=== PATIENT | male | born 1975 | race Two or more races ===

== ENCOUNTER 2024-03-13 14:11 | Emergency (ER) | payer OTHER, MEDICAID, SELFPAY ==
[2024-03-13 14:24] VITALS: BP 115/74; PULSE 87; RESP 19; TEMP 36.9; O2SAT 98
--- NOTE | 2024-03-13 14:27 | PD.EDRME ---
Rapid Medical Screening Exam RME Arrival date/time: 03/13/24 14:11 Chief Complaint: Abdominal Pain Time Seen by Provider: 03/13/24 14:18 Vital signs: Vital Signs Temperature 98.4 F 03/13/24 14:24 Pulse Rate 87 03/13/24 14:24 Respiratory Rate 19 03/13/24 14:24 Blood Pressure 115/74 03/13/24 14:24 Pulse Oximetry (%) 98 03/13/24 14:24 Oxygen Delivery Method Room Air 03/13/24 14:24 RME Narrative: Constipation x3 days followed by diarrhea x3-4 days. Denies laxative use. No n/v or abdominal pain reported
[2024-03-13 14:28] VITALS: BMI 24.2
[2024-03-13 14:56] LABS: Basophils # (Auto) 0.1 Thou/mm3 (0.0-0.2); Basophils % (Auto) 1 % (0-2.5); Eosinophils # (Auto) 0.4 Thou/mm3 (0.0-0.5); Eosinophils % (Auto) 4 % (0-10); Hematocrit 45.7 % (41.0-53.0); Hemoglobin 15.9 g/dL (13.5-16.0); Immature Granulocytes % (Auto) 0 % (0-0); Immature Granulocytes Auto 0.02 Thou/mm3 (0.00-0.00); Lymphocytes # (Auto) 1.4 Thou/mm3 (1.0-4.8); Lymphocytes % (Auto) 16 % (10-50); Mean Corpuscular HGB Conc 34.8 g/dl (31.0-37.0); Mean Corpuscular Hemoglobin 29.7 pg (25.0-35.0); Mean Corpuscular Volume 85 fL (80-100); Monocytes # (Auto) 0.5 Thou/mm3 (0.0-0.8); Monocytes % (Auto) 5 % (0-12); Neutrophils # (Auto) 6.7 Thou/mm3 (1.8-7.7); Neutrophils % (Auto) 74 % (37-80); Nucleated Red Blood Cell % 0 /100 WBC (0); Platelet Count 282 Thou/mm3 (140-440); RDW Standard Deviation 38.3 fL (35.1-43.9); Red Blood Count 5.36 Miln/mm3 (4.50-5.90)
[2024-03-13 15:20] LABS: Alanine Aminotransferase 12 U/L (10-49); Albumin, Serum 5.2 gm/dL (3.5-5.0); Albumin/Globulin Ratio 1.7 (1.2-2.2); Alkaline Phosphatase 79 U/L (46-116); Anion Gap 6 (7-16); Aspartate Amino Transferase 10 U/L (0-34); BUN/Creatinine Ratio 17 Ratio (12-20); Bilirubin,Total 1.1 mg/dL (0.3-1.2); Blood Urea Nitrogen 15 mg/dL (9-23); Carbon Dioxide 26.9 mMol/L (20.0-31.0); Chloride 104 mMol/L (98-107); Creatinine (Component) 0.9 mg/dL (0.6-1.3); Estimated Creatinine Clearance 92.5 mL/min (>60); Glucose 127 mg/dL (74-106); Lipase 37 U/L (12-53); Osmolality,Calculated 276 (275-295); Potassium 4.1 mMol/L (3.4-5.1); Sodium 137 mMol/L (136-145); Total Protein 8.2 gm/dL (5.7-8.2); eGFR > 60 See Note
--- NOTE | 2024-03-13 15:28 | XR_ITS ---
Examination: Abdomen AP single view Technique: AP portable supine abdomen, single view Exam date and time: March 13, 2024 1533 hrs. Indications: Constipation 1 week. Findings: Mild stool throughout the colon No obstruction No free air Lung bases clear Impression: Nonobstructive bowel gas pattern
--- NOTE | 2024-03-13 16:26 | EDNOTE_ITS ---
ED General RME/HPI General Chief complaint: Abdominal Pain Stated complaint: abd. pain and watery stools Time Seen by Provider: 03/13/24 14:18 Arrival date/time: 03/13/24 14:11 RME / HPI RME / HPI narrative: 48-year-old male patient with no significant medical history, came in for evaluation regarding diarrhea. Patient's been having diarrhea, nonbloody, described as watery, severity moderate, for the last few days. Patient denies any fever denies any abdominal pain denies any vomiting denies any ill contacts denies any other complaints no medication was taken prior to arrival. Related Data Home Medications ?Medication ?Instructions ?Recorded ?Confirmed levetiracetam 1,000 mg tablet 1,000 mg PO BID 05/28/19 12/22/21 pramipexole 0.25 mg tablet 0.25 mg PO BID 05/28/19 12/22/21 sertraline 100 mg tablet 200 mg PO QDAY 05/28/19 12/22/21 meloxicam 15 mg tablet 15 mg PO QDAY 10/15/19 12/22/21 omeprazole 20 mg delayed 20 mg PO QDAY 06/20/20 12/22/21 release,disintegrating tablet clonazepam 1 mg tablet 1 mg PO BID 09/27/21 12/22/21 gabapentin 600 mg tablet 600 mg PO TID 09/27/21 12/22/21 loratadine 10 mg tablet 1 tab PO 1XD 12/22/21 12/22/21 Previous Rx's ?Medication ?Instructions ?Recorded lactulose 10 gram/15 mL (15 mL) 20 g (30 mL) PO BID PRN 12/27/23 oral solution constipation #300 mL ciprofloxacin HCl 500 mg tablet 500 mg PO BID #10 tabs 03/13/24 metronidazole 500 mg tablet 500 mg PO BID #10 tabs 03/13/24 Allergies Allergy/AdvReac Type Severity Reaction Status Date / Time No Known Allergies Allergy Verified 03/13/24 14:14 Review of Systems Review of Systems Narrative Review of Systems: Review of system reviewed and within normal limits except mentioned in HPI ED Exam Narrative Physical exam: VITAL SIGNS: Reviewed. GENERAL APPEARANCE: Alert and interactive, follows commands, no acute distress, HEAD AND FACE: Non-traumatic. ENT: PERRL, pink conjunctivitis, eyelid no trauma, Mucous membrane moist. NECK: Supple, nontender, no nuchal rigidity. CHEST: No tenderness, no crepitus, no paradoxical movement, no retractions. LUNGS: Clear, well ventilated, symmetric, no rales, no wheezing, no ronchi, no stridor, good breath sounds bilaterally. HEART: Regular rate, regular rhythm, no murmur, no gallops. ABDOMEN: Soft, positive bowel sounds, nondistended, no guarding, nontender, no rebound, no masses, RECTAL: Deferred. GENITAL: Deferred. NEUROLOGICAL: Gross motor function intact sensory function intact, Appropriate for age. MUSCULOSKELETAL: low back nontender, full range of motion. EXTREMITIES: Nontender, full range of motion. SKIN: Color pink, dry, no rash, no lacerations, no abrasions, no contusions. LYMPHATICS: Deferred. Course Quality Measures none Orders Category Date Time Status KUB [XR abdomen 1V] Stat Exams 03/13/24 15:28 Completed CBC Stat Lab 03/13/24 14:39 Completed CMP [Comprehensive Metabolic Panel] Stat Lab 03/13/24 14:39 Completed Lipase Stat Lab 03/13/24 14:39 Completed UA [Urinalysis] Stat Lab 03/13/24 14:29 Ordered Vital Signs Vital signs: Vital Signs Temperature 98.4 F 03/13/24 14:24 Pulse Rate 87 03/13/24 14:24 Respiratory Rate 19 03/13/24 14:24 Blood Pressure 115/74 03/13/24 14:24 Pulse Oximetry (%) 98 03/13/24 14:24 Oxygen Delivery Method Room Air 03/13/24 14:24 MDM Patient data External records reviewed:: None Clinical information provided by:: patient Social determinants that could affect healthcare access:: none Patient has the following chronic illnesses:: None How is presenting disease/condition affected by chronic disease/condition?: no chronic disease Evaluation data The following diagnostics were reviewed and interpreted by me:: lab results Lab and/or radiology exams considered but not ordered:: None Interpretation Summary: Patient's laboratory workup all came back normal. Medications Medications considered but not ordered:: None Medication administrations:: None Consultations Consultation(s) initiated? (list below): Yes Diagnosis Differential Diagnosis ED Complaint MDM: Diarrhea, infectious diarrhea, gastroenteritis foot presenting Most likely diagnosis given after review of the tests above:: Diarrhea Admission Indicated Admission indicated?: not indicated Explain why admission is indicated or not indicated:: Stable Admission Request Was there a request for admission?: No Disposition Plan Disposition Plan: Discharge Discharge Attestation Discharge Attestation: The patient was given an opportunity to ask questions and understood the discharge instructions. Discharge instructions specifically effects, indications for sooner follow up or return to the emergency department, and the expected course of current diagnosis. Patient condition: Stable Medical Decision Making MDM Narrative MDM Narrative: 48-year-old male patient with no significant medical history, came in for evaluation regarding diarrhea. Patient's been having diarrhea, nonbloody, described as watery, severity moderate, for the last few days. Patient denies any fever denies any abdominal pain denies any vomiting denies any ill contacts denies any other complaints no medication was taken prior to arrival. Patient's workup today all came back unremarkable. Discussed the plans with him, and agrees that patient is to be started on empiric antibiotic for diarrhea. Patient is stable for discharge Differential Diagnosis Differential Diagnosis: Diarrhea, infectious diarrhea, gastroenteritis foot presenting Lab Data 03/13/24 14:39 03/13/24 14:39 Labs: Lab Results 03/13/24 Range/Units 14:39 WBC 9.0 (3.8-10.6) Thou/mm3 RBC 5.36 (4.50-5.90) Miln/mm3 Hgb 15.9 (13.5-16.0) g/dL Hct 45.7 (41.0-53.0) % MCV 85 (80-100) fL MCH 29.7 (25.0-35.0) pg MCHC 34.8 (31.0-37.0) g/dl RDW Std Deviation 38.3 (35.1-43.9) fL Plt Count 282 (140-440) Thou/mm3 Neut % (Auto) 74 (37-80) % Lymph % (Auto) 16 (10-50) % Gaston % (Auto) 5 (0-12) % Eos % (Auto) 4 (0-10) % Baso % (Auto) 1 (0-2.5) % Neut # (Auto) 6.7 (1.8-7.7) Thou/mm3 Lymph # (Auto) 1.4 (1.0-4.8) Thou/mm3 Gaston # (Auto) 0.5 (0.0-0.8) Thou/mm3 Eos # (Auto) 0.4 (0.0-0.5) Thou/mm3 Baso # (Auto) 0.1 (0.0-0.2) Thou/mm3 Immature Gran # (Auto) 0.02 H (0.00-0.00) Thou/mm3 Absolute Nucleated RBC 0.00 (0.00-0.00) Thou/mm3 Immature Gran % 0 (0-0) % Nucleated RBC % 0 (0) /100 WBC Sodium 137 (136-145) mMol/L Potassium 4.1 (3.4-5.1) mMol/L Chloride 104 (98-107) mMol/L Carbon Dioxide 26.9 (20.0-31.0) mMol/L Anion Gap 6 L (7-16) BUN 15 (9-23) mg/dL Creatinine 0.9 (0.6-1.3) mg/dL Estim Creat Clear Calc 92.5 (>60) mL/min eGFR > 60 (60 - ) See Note BUN/Creatinine Ratio 17 (12-20) Ratio Glucose 127 H (74-106) mg/dL Calculated Osmolality 276 (275-295) Calcium 10.0 (8.3-10.6) mg/dL Corrected Calcium 10.0 (8.5-10.1) mg/dL Total Bilirubin 1.1 (0.3-1.2) mg/dL AST 10 (0-34) U/L ALT 12 (10-49) U/L Alkaline Phosphatase 79 (46-116) U/L Total Protein 8.2 (5.7-8.2) gm/dL Albumin 5.2 H (3.5-5.0) gm/dL Globulin 3.0 (2.3-3.5) gm/dL Albumin/Globulin Ratio 1.7 (1.2-2.2) Lipase 37 (12-53) U/L Discharge Plan Plan Patient Disposition: HOME (Self Care) Disposition Comment: stable Prescriptions/Referrals Prescriptions/Med Rec: New ciprofloxacin HCl 500 mg tablet 500 mg PO BID Qty: 10 0RF metronidazole 500 mg tablet 500 mg PO BID Qty: 10 0RF No Action sertraline 100 mg Tablet 200 mg PO QDAY Rx Instructions: ONE AND A HALF PO QD. pramipexole 0.25 mg Tablet 0.25 mg PO BID levetiracetam 1,000 mg Tablet 1,000 mg PO BID omeprazole 20 mg Tablet,Disintegrat, Delay Rel 20 mg PO QDAY gabapentin 600 mg tablet 600 mg PO TID Patient Comments: take 1 tablet by mouth three times a day clonazepam 1 mg tablet 1 mg PO BID Patient Comments: take 1 tablet by mouth twice a day meloxicam 15 mg Tablet 15 mg PO QDAY loratadine 10 mg tablet 1 tab PO 1XD Patient Comments: take 1 tablet by mouth once daily lactulose 10 gram/15 mL (15 mL) solution 20 g PO BID PRN (Reason: constipation) Qty: 300 0RF Referrals: No Primary/Family,Physician [Primary Care Provider] - In 1 week Problem List Clinical Impression: Diarrhea Patient/Caregiver Discharge Instructions Discharge Activity: activity as tolerated Education Materials: Treating Diarrhea Additional Instructions: Thank you for the opportunity for serving you today. You are stable for discharged . You are advised to: Follow-up with your PCP in 1 to 2 days Return to ED for worsening of symptoms Increase oral fluids Take medication as prescribed Print Language: Irish Stand Alone Forms: Rachel Award Info., Patient Portal Info Letter PA/KAYLEN Supervising Physician NISHANT/KAYLEN Supervising Physician: MD Radha
== END 2024-03-13 16:42 | disposition home or self-care (01) ==
PROVIDERS: Physician Assistant; Emergency Provider Emergency Medicine
DX: R19.7 Diarrhea, unspecified (principal); K59.00 Constipation, unspecified
CPT/HCPCS: 36415; 74018; 80053; 81001; 83690; 85025; 99283